=== PATIENT | female | born 1990 | race Two or more races ===

== ENCOUNTER → 2021-05-18 09:36 | Outpatient (BNVA) | payer OTHER, SELFPAY | PROVIDERS: Visit Provider Physician Assistant | DX: Z13.89 Encounter for screening for other disorder (principal) | CPT/HCPCS: 71101; 99203 ==

== ENCOUNTER → 2021-12-06 13:44 | Outpatient (BNVA) | payer OTHER, SELFPAY | PROVIDERS: Visit Provider Physician Assistant Medical | DX: Z13.89 Encounter for screening for other disorder (principal) | CPT/HCPCS: 99202 ==

== ENCOUNTER → 2021-12-09 09:32 | Outpatient (BNVA) | payer OTHER, SELFPAY | PROVIDERS: Visit Provider Physician Assistant Medical | DX: Z13.89 Encounter for screening for other disorder (principal) | CPT/HCPCS: 99213 ==

== ENCOUNTER → 2021-12-15 11:15 | Outpatient (BNVA) | payer OTHER, SELFPAY | PROVIDERS: Visit Provider Physician Assistant Medical | DX: Z13.89 Encounter for screening for other disorder (principal) | CPT/HCPCS: 99213 ==

== ENCOUNTER → 2021-12-23 10:55 | Outpatient (BNVA) | payer OTHER, SELFPAY | PROVIDERS: Visit Provider Physician Assistant Medical | DX: Z13.89 Encounter for screening for other disorder (principal) | CPT/HCPCS: 99213 ==

== ENCOUNTER → 2022-01-06 10:43 | Outpatient (BNVA) | payer OTHER, SELFPAY | PROVIDERS: Visit Provider Physician Assistant Medical | DX: Z13.89 Encounter for screening for other disorder (principal) | CPT/HCPCS: 72110; 73502; 99214 ==

== ENCOUNTER → 2022-01-19 11:23 | Outpatient (BNVA) | payer OTHER, SELFPAY | PROVIDERS: Visit Provider Physician Assistant Medical | DX: Z13.89 Encounter for screening for other disorder (principal) | CPT/HCPCS: 99213 ==

== ENCOUNTER 2022-01-27 14:55 | Outpatient (REF) | payer OTHER, SELFPAY ==
--- NOTE | ~2022-01-27 | MR_ITS ---
EXAMINATION: MR BRAIN WITHOUT AND WITH CONTRAST CLINICAL INFORMATION: 31-year-old with migraines without aura. Self-reported chronic migraines, progressively worsening over 2-3 months in timeframe. COMPARISON: None TECHNIQUE: Multiplanar, multisequence MRI of the brain was obtained before and after the intravenous administration of 9 mL Gadavist. FINDINGS: Brain Volume: Within normal range, within the limitations of a qualitative assessment. Structural: No malformations. Brain and Meninges: DWI sequence demonstrates no restricted diffusion to suggest acute or subacute cerebral ischemia. The brain is normal in morphology and signal intensity. Gradient refocused imaging demonstrates no evidence for hemorrhage, hemosiderin staining or abnormal mineral deposition. No intracranial mass lesion, extra-axial fluid collection, space-occupying process or mass effect is identified. No pathologic enhancement is seen. Ventricles and Subarachnoid Spaces: The ventricular system and subarachnoid spaces are within normal limits without hydrocephalus. Orbital Structures: The visualized orbital structures are grossly unremarkable within the limitations of the study. Vascular: Signal voids are noted in the visualized major intracranial vessels. Osseous Structures, Sinuses/Mastoids, Extracranial Soft Tissues: Unremarkable MR/MR head/brain wo/w con IMPRESSION: Normal MRI of the brain without and with contrast.
--- NOTE | ~2022-01-27 | MR_ITS ---
EXAMINATION: MR HIP WITHOUT CONTRAST, LEFT CLINICAL INFORMATION: Injury. Pain in the left quadriceps. Strain. No improvement with physical therapy. COMPARISON: None TECHNIQUE: MRI of the left hip was obtained using routine sequences on a high-field magnet. FINDINGS: LABRUM/CAPSULE: Intact. BONES AND ARTICULAR CARTILAGE: Articular cartilage at the hip joint appears relatively well preserved. No subchondral marrow signal abnormality. No fracture, avascular necrosis, or stress reaction. Imaged portions of the pubic symphysis, right hip, and SI joints are unremarkable. MUSCLES AND TENDONS: There is a small focus of edema signal at the deep margin of the left rectus femoris muscle proximally, potentially corresponding to a focal strain or contusion. No appreciable tears on these images. Tendons are intact without tears or tendinosis. Aponeuroses at the pubic symphysis are normal. JOINT FLUID AND BURSAE: Trace fluid in the left hip joint is within normal limits. There is a small synovial cyst along the medial margin of the femoral neck which is of doubtful clinical significance. No bursitis. LIGAMENTUM TERES: Intact. INTRAPELVIC SOFT TISSUES: Unremarkable. No adenopathy. MR/MR hip LT wo con IMPRESSION: Focal strain or contusion at the proximal rectus femoris muscle. No appreciable tears.
== END 2022-01-27 14:56 | disposition home or self-care (01) ==
LOC: HO.MRI 14:55
PROVIDERS: Visit Provider Internal Medicine
DX: M25.552 Pain in left hip (principal); G43.009 Migraine without aura, not intractable, without status migrainosus
CPT/HCPCS: 70553; 73721; A9585

== ENCOUNTER → 2022-02-03 10:33 | Outpatient (BNVA) | payer OTHER, SELFPAY | PROVIDERS: Visit Provider Physician Assistant Medical | DX: Z13.89 Encounter for screening for other disorder (principal) | CPT/HCPCS: 99213 ==

== ENCOUNTER 2022-02-15 15:01 | Outpatient (REF) | payer OTHER, SELFPAY ==
--- NOTE | ~2022-02-15 | MR_ITS ---
EXAMINATION: MR LUMBAR SPINE WITHOUT CONTRAST CLINICAL INFORMATION: Low back strain, radiculopathy. COMPARISON: None TECHNIQUE: MRI of the lumbar spine was obtained using routine sequences without contrast. FINDINGS: The lumbar vertebral bodies maintain normal heights. There is minimal retrolisthesis of L3 on L4. No disc height loss is seen. There is disc desiccation at L4-L5 and L5-S1. Spinal cord appears normal. The conus medullaris terminates normally at the L1-L2 level. The extraspinal soft tissues are unremarkable. SPINAL LEVELS: L1-L2: No posterior disc abnormality. No spinal canal or neural foraminal stenosis. L2-L3: No posterior disc abnormality. No spinal canal or neural foraminal stenosis. L3-L4: Disc bulging with shallow central protrusion. Mild narrowing of the left subarticular zone. No spinal canal or neural foraminal stenosis. L4-L5: Disc bulging with mild flattening of the ventral thecal sac and narrowing of the right subarticular zone. No spinal canal or neural foraminal stenosis. L5-S1: Disc bulging with central protrusion with annular fissuring causing right subarticular stenosis. Mild facet arthropathy. Moderate bilateral neural foraminal stenosis. MR/MR lumbar spine wo con IMPRESSION: Mild spondylotic changes at L3-L4, L4-L5, and L5-S1 but without significant narrowing of the spinal canal. Neural foraminal stenosis appears moderate at the L5-S1 level.
== END 2022-02-15 15:02 | disposition home or self-care (01) ==
LOC: HO.MRI 15:01
PROVIDERS: Visit Provider Physician Assistant Medical
DX: S39.012D Strain of muscle, fascia and tendon of lower back, subsequent encounter (principal); M54.16 Radiculopathy, lumbar region
CPT/HCPCS: 72148

== ENCOUNTER → 2022-02-17 09:49 | Outpatient (BNVA) | payer OTHER, SELFPAY | PROVIDERS: Visit Provider Physician Assistant Medical | DX: Z13.89 Encounter for screening for other disorder (principal) | CPT/HCPCS: 99213 ==

== ENCOUNTER 2022-02-22 15:00 | Outpatient (RCR) | payer OTHER, BC, SELFPAY ==
--- NOTE | 2021-12-14 16:11 | MHC.PT.EP ---
[facility] [place] Office [place] Office [place] Office [address] Radha Rendon [address] [phone] F: [phone] F: [phone] F: [phone] F: [phone] Physical Therapy Plan of Care Date of Evaluation: Date of Surgery: n/a Diagnosis: L IT, lumbar strain Assessment: Patient is a 30 year old female presenting to PT with complaints of pain in her low back and B anterior quads. Pt reports onset of pain began 12/06/2021 due to slipping and falling at work. She presents today with impairments in pain, ROM, hip strength, core strength, and posture. Pt's current occupation is [employer] at [employer], with baseline physical activities including standing, stair negotiation, work. Pt expresses long-term goal of getting back to normal, and is motivated to work towards this in PT. Clinical presentation today is most consistent with signs and sx associated with possible low back and B quad pain that is likely myofascial in nature and pt will benefit from skilled PT to address the following problems and impairments noted upon evaluation: pain, ROM, hip strength, core strength, and posture. These problems limit the patient with the following functional activities: standing, stair negotiation, work. The prescribed treatment plan of care is medically necessary. Co-morbidities of vasovagal syncope were identified and taken into considerations of plan of care. Pt was educated on HEP, role of PT, prognosis, POC. Frequency and Duration: The patient will be seen 2 x week x 4 weeks Short Term Goals: Pt will demonstrate lumbar AROM in available range with min to no pain in 2 weeks. Pt will demonstrate improved quad length B in 2 weeks. Pt will demonstrate improved hip strength extension and abduction strength to at least 4/5 in 2 weeks for improved lumbopelvic stability. Fern Picker Goals: Pt will demonstrate improved Alicia score by 10% in 4 weeks for improved functional mobility. Pt will demonstrate improved LEFI score by 9 points for improved overall functional mobility. Pt will demonstrate ability to stand/ambulate during a shift with min to no pain in 4 weeks for return to PLOF. Treatment Plan: Modalities to reduce pain, spasms and effusion. Manual therapy to restore motion and function. Therapeutic exercise to improve strength and flexibility. Neuromuscular re-education for posture and balance. Therapeutic activities to return to functional activities of daily living. Electronically signed by: Jordana Salgado PT, DPT, ATC Please sign and return to therapist. Thank you for your referral.
--- NOTE | 2022-02-22 15:55 | MHC.PT.DC ---
[facility] [place] Office [place] Office [place] Office [address] Vid[address] Rendon [address] [phone] F: [phone] F: [phone] F: [phone] F: [phone] Physical Therapy Discharge Report Diagnosis: L IT, lumbar strain Date of Surgery: n/a Date of Evaluation: 12/14/21 Date of Discharge: 02/22/22 Treatments to Date: 16 Cancellations to Date: 1 No Shows to Date: 3 Discharge Status: Recommend MD Follow-up Discharge Summary: Pt has unfortunately made little progress since start of care in both her pain and function thus limiting her ability to meet her goals. Multiple different treatment approaches from 2 different therapists have been trialed and pt still with no real change in her pain and sx. It appears max benefits of PT have been provided at this point. She is working a lot and at times upwards of 60 hours a week and discussed with her that this likely contributes to some of her pain. Discussed with pt that due to lack of progress it is not indicated to continue skilled PT at this point as there is no real recent meaningful change in her progress. Pt would benefit further from possible referral to pain management or another specialist for further alleviation of pain. Electronically signed by: Jordana Salgado, PT, DPT, ATC Please sign and return to therapist. Thank you for your referral.
== END 2022-02-22 15:56 | disposition home or self-care (01) ==
LOC: HO.PTCHIC 15:00
PROVIDERS: Visit Provider Physician Assistant Medical
DX: S39.012D Strain of muscle, fascia and tendon of lower back, subsequent encounter (principal); S76.912D Strain of unspecified muscles, fascia and tendons at thigh level, left thigh, subsequent encounter
CPT/HCPCS: 97110; 97140; 97161

== ENCOUNTER → 2022-02-27 15:14 | Outpatient (BNVA) | payer OTHER, SELFPAY | PROVIDERS: Visit Provider Physician Assistant Medical | DX: Z13.89 Encounter for screening for other disorder (principal) | CPT/HCPCS: 99213 ==

== ENCOUNTER → 2022-03-08 14:52 | Outpatient (BNVA) | payer OTHER, SELFPAY | PROVIDERS: PCP Internal Medicine; Visit Provider Nurse Practitioner Family | DX: M47.816 Spondylosis without myelopathy or radiculopathy, lumbar region (principal); M53.3 Sacrococcygeal disorders, not elsewhere classified; S76.819A Strain of other specified muscles, fascia and tendons at thigh level, unspecified thigh, initial encounter | CPT/HCPCS: 99202 ==

== ENCOUNTER → 2022-03-16 11:23 | Outpatient (BNVA) | payer OTHER, SELFPAY | PROVIDERS: PCP Internal Medicine; Visit Provider Physician Assistant Medical | DX: Z13.89 Encounter for screening for other disorder (principal) | CPT/HCPCS: 99213 ==

== ENCOUNTER → 2022-04-14 11:01 | Outpatient (BNVA) | payer OTHER, SELFPAY | PROVIDERS: PCP Internal Medicine; Visit Provider Physician Assistant Medical | DX: Z13.89 Encounter for screening for other disorder (principal) | CPT/HCPCS: 99213 ==

== ENCOUNTER → 2022-04-21 11:35 | Outpatient (BNVA) | payer OTHER, SELFPAY | PROVIDERS: PCP Internal Medicine; Visit Provider Physician Assistant Medical | DX: Z13.89 Encounter for screening for other disorder (principal) | CPT/HCPCS: 99213 ==

== ENCOUNTER → 2022-05-04 11:49 | Outpatient (BNVA) | payer OTHER, SELFPAY | PROVIDERS: PCP Internal Medicine; Visit Provider Physician Assistant Medical | DX: Z13.89 Encounter for screening for other disorder (principal) | CPT/HCPCS: 99213 ==

== ENCOUNTER → 2022-05-25 11:11 | Outpatient (BNVA) | payer OTHER, SELFPAY | PROVIDERS: PCP Internal Medicine; Visit Provider Physician Assistant Medical | DX: Z13.89 Encounter for screening for other disorder (principal) | CPT/HCPCS: 99213 ==

== ENCOUNTER → 2022-06-06 14:38 | Outpatient (BNVA) | payer OTHER, SELFPAY | PROVIDERS: PCP Internal Medicine; Visit Provider Nurse Practitioner Family | DX: M53.3 Sacrococcygeal disorders, not elsewhere classified (principal); M47.816 Spondylosis without myelopathy or radiculopathy, lumbar region; M54.16 Radiculopathy, lumbar region | CPT/HCPCS: 99212 ==

== ENCOUNTER → 2022-06-15 11:17 | Outpatient (BNVA) | payer OTHER, SELFPAY | PROVIDERS: PCP Internal Medicine; Visit Provider Physician Assistant Medical | DX: Z13.89 Encounter for screening for other disorder (principal) | CPT/HCPCS: 99213 ==

== ENCOUNTER 2022-06-29 15:38 | Emergency (ER) | payer OTHER, SELFPAY ==
[2022-06-29 15:59] VITALS: BP 121/64; PULSE 122; RESP 18; TEMP 37.7; O2SAT 98; BMI 36.8
--- NOTE | 2022-06-29 16:12 | ED.GENADULT ---
HPI - General Adult General Chief complaint: General Medical Stated complaint: tonsils swollen seen at urgent care Time Seen by Provider: 06/29/22 16:00 History of Present Illness HPI narrative: This is a 31-year-old female who complains of sore throat and pain with swallowing that began about 24 hours ago. Patient went to urgent care today and was tested for strep and COVID and was negative. A mono test was sent but is pending. Patient has had fever up to 101. She states she was prescribed Augmentin tablets but she cannot swallow such large tablets. She denies any cough, vomiting or diarrhea. She denies any URI symptoms. She denies being Related Data Home Medications Medication Instructions Recorded Confirmed hbspuaydpo-tkirxxoccyuem-seqtssfa 1 cap PO Q8H PRN 03/08/22 06/06/22 50 mg-300 mg-40 mg capsule (Fioricet) cetirizine 10 mg capsule (Zyrtec) 10 mg PO DAILY PRN 03/08/22 06/06/22 diclofenac sodium 75 mg 75 mg PO BID 03/08/22 06/06/22 tablet,delayed release galcanezumab-gnlm 120 mg/mL mg subcut 03/08/22 06/06/22 subcutaneous syringe (Emgality) metoclopramide HCl 10 mg tablet 10 mg PO QIDACHS 03/08/22 06/06/22 (Reglan) midodrine 5 mg tablet 5 mg PO TID 03/08/22 06/06/22 venlafaxine 75 mg capsule,extended 75 mg PO DAILY 03/08/22 06/06/22 release 24 hr (Effexor XR) Previous Rx's Medication Instructions Recorded Magic Mouthwash 15 ml PO Q4H PRN throat pain 5 06/29/22 Diphen/Lido/Antacid 1:1:1 240 mL days #240 mL suspension clindamycin palmitate HCl 75 mg/5 300 mg (20 mL) PO QID 7 days #560 06/29/22 mL oral solution (Cleocin mL Pediatric) Allergies Allergy/AdvReac Type Severity Reaction Status Date / Time oxycodone AdvReac Severe Itching Verified 06/06/22 14:56 Review of Systems Review of Systems: Yes all other systems are reviewed and are negative Constitutional: Constitutional: Reports fever(s) Eyes: Eyes: Reports as per HPI and Reports no additional eye complaints ENT: Reports system reviewed and no additional complaints, except as documented, Reports as per HPI, Denies nasal congestion, Denies nasal discharge and Reports sore throat Cardiovascular: Cardiovascular: Reports as per HPI, Denies chest pain and Denies dyspnea Respiratory: Respiratory: Reports as per HPI, Denies cough and Denies dyspnea Gastrointestinal: Gastrointestinal: Reports as per HPI, Denies abdominal pain, Denies diarrhea and Denies vomiting Genitourinary: Genitourinary: Reports as per HPI, Denies hematuria, Denies urinary frequency and Denies dysuria Musculoskeletal: Musculoskeletal: Reports no additional musculoskeletal complaints and Denies numbness Integumentary/Breasts: Skin/Breast: Reports as per HPI and Denies rash Neurologic: Reports as per HPI, Denies focal weakness and Denies numbness Psychiatric: Psychiatric: Reports no additional psychiatric complaints and Reports as per HPI Endocrine: Endocrine: Reports no additional endocrine complaints and Reports as per HPI Hematologic/Lymphatic: Hematologic/Lymphatic: Reports no additional hematologic/lymphatic complaints, Reports as per HPI and Reports other (No peripheral edema) [facility] Past Medical History Medical History (Updated 06/30/22 @ 00:00 by Cee Noble) Migraines Ovarian cyst Strain of rectus femoris muscle Vasovagal syncope Surgical History (Updated 06/06/22 @ 22:39 by ALBAN Ferreira) History of removal of ovarian cyst History of shoulder surgery History of strabismus surgery Social History Social History Smoked in Last 30 Days: No Use of substances other than those prescribed or required for medical reasons: No Advance Directives: No Advance Directives Information Provided: No Patient : No Physical Exam ED Vital Signs: Vital Signs - 24 hr 06/29/22 15:59 06/29/22 18:53 Temperature 99.9 F 98.6 F Pulse Rate 122 H 84 Respiratory Rate 18 14 Blood Pressure 121/64 93/46 L Pulse Oximetry 98 98 Oxygen Delivery Method Room Air Room Air BMI result Body Mass Index 36.8 Const General: no acute distress Orientation/consciousness: patient oriented x3 HENMT Head: Yes normal to inspection General nose exam: Normal external nose present Mouth: moist mucous membranes and no muffled voice Throat: Yes posterior oropharynx normal, No tonsils normal (Enlargement of left tonsil more than the right with mild shift of the uvula), No uvula midline and Yes abnormal tonsil (Left enlarged, exudate seen in left posterior pharynx) Eyes Eyelids: Yes eyelids normal Conjunctivae: conjunctivae normal Pupils: Equal, round and reactive pupils present Neck Neck: Yes supple Resp Effort & Inspection: normal respiratory effort Auscultation: clear to auscultation bilaterally Cardio Rate: regular rate Rhythm: regular rhythm Heart sounds: S1 normal heart sound present, S2 normal heart sound present, no gallops, no murmurs and no rubs GI Inspection: No distended Palpation (GI): Soft to palpation and nontender Auscultation: normal bowel sounds Skin General skin exam: other (Warm and dry) Neuro General: patient oriented x3 and CN's II-XI intact bilaterally Cranial nerves: Yes Equal, round and reactive pupils present Extrem General: Yes no pedal edema Psych Affect: normal affect Attitude: cooperative Medications Administered Discontinued Medications Generic Name Dose Route Start Last Admin Trade Name Freq PRN Reason Stop Dose Admin Dexamethasone Sodium Phosphate 10 mg 06/29/22 16:05 06/29/22 16:58 Dexamethasone Sod Phosphate 10 Mg/Ml Vial IVPUSH 06/29/22 16:06 10 mg ONCE ONE Administration Sodium Chloride 1,000 mls @ 999 mls/hr 06/29/22 16:15 06/29/22 18:34 Ns IV 06/29/22 17:15 Infused .Q1H1M DIDIER Infusion Ceftriaxone Sodium 1 gm/ 50 mls @ 100 mls/hr 06/29/22 16:05 06/29/22 18:34 Sodium Chloride IV 06/29/22 16:34 Infused ONCE ONE Infusion Ketorolac Tromethamine 15 mg 06/29/22 17:02 06/29/22 17:14 Ketorolac Tromethamine 15 Mg/Ml Vial IVPUSH 06/29/22 17:03 15 mg ONCE ONE Administration Medical Decision Making [facility] Narrative Medical decision making narrative: Patient with a sore throat and enlargement of her tonsil, left greater than right. From initial evaluation when the patient was in the hallway, there appeared to be more asymmetry and this appeared to be a peritonsillar abscess. Upon re-evaluation after the patient had received steroids and IV fluids, and with a better view in her throat, the uvula was only slightly deviated. There was fullness in the left peritonsillar space but it was mild and I felt that attempted aspiration was unlikely to drain pus at this point. The patient has only been symptomatic for 24 hours. At the patient received Rocephin 1 g IV and will be started on clindamycin suspension. At this point the patient may only have peritonsillar cellulitis. Explained the patient that I considered aspiration but felt that it it may be too early to drain pus. The patient is being given Unasyn throat follow-up. Lab Data Lab results reviewed: Yes I reviewed the patient's lab results. Result diagrams: 06/29/22 16:53 06/29/22 16:53 Labs: Lab Results 06/29/22 06/29/22 Range/Units 16:53 16:53 WBC 16.4 H (4.8-10.8) X10*3/uL RBC 4.45 (4.20-5.50) X10*6/uL Hgb 13.0 (12.0-16.0) g/dl Hct 38.9 (37.0-47.0) % MCV 87.4 (80.0-98.0) fL MCH 29.2 (27.0-33.0) pg MCHC 33.4 (31.0-35.0) g/dl RDW 12.9 (11.0-16.0) % Plt Count 242 (160-400) X10*3/uL MPV 10.0 (9.4-12.3) fL Immature Gran % (Auto) Cancelled Neut % (Auto) Cancelled Lymph % (Auto) Cancelled [place] % (Auto) Cancelled Eos % (Auto) Cancelled Baso % (Auto) Cancelled Lymph # (Auto) Cancelled [place] # (Auto) Cancelled Eos # (Auto) Cancelled Baso # (Auto) Cancelled Abs Immat Gran (auto) Cancelled Absolute Neuts (auto) Cancelled Absolute Nucleated RBC 0.000 (0.0-0.012) X10*3/uL Nucleated RBC % (auto) 0.0 (0.0-0.2) /100WBC Neutrophils % (Manual) 90 H (45-73) % Band Neutrophils % 4 (3-5) % Lymphocytes % (Manual) 4 L (20-40) % Monocytes % (Manual) 2 (2-11) % Abs Neuts (Manual) 15.4 H (2.0-8.3) X10*3/uL Lymphocytes # (Manual) 0.7 L (1.2-4.9) X10*3/uL Monocytes # (Manual) 0.3 (0.1-1.2) X10*3/uL Toxic Vacuolation PRESENT Platelet Estimate NORMAL (NORMAL) Plt Morphology Comment NORMAL RBC Morphology NORMAL Sodium 134 L (135-145) mmol/L Potassium 3.6 (3.3-5.1) mmol/L Chloride 101 (96-108) mmol/L Carbon Dioxide 25 (22-29) mmol/L Anion Gap 12 (12-20) BUN 7 L (9-16) mg/dL Creatinine 0.72 (0.5-1.4) mg/dL Estim Creat Clear Calc 116.5 Estimated GFR > 60 Random Glucose 98 (60-115) mg/dL Calcium 9.5 (8.4-10.2) mg/dL Total Bilirubin 1.0 (0.0-1.0) mg/dL AST 17 (5-31) U/L ALT 10 (0-31) U/L Alkaline Phosphatase 65 (39-117) U/L Total Protein 7.9 (6.5-8.0) g/dL Albumin 4.7 (3.5-5.0) g/dL Discharge Plan Discharge Clinical Impression: Peritonsillar cellulitis Patient Disposition: Home, Self-Care Instructions: Peritonsillar Abscess (ED) Additional Instructions: You may have peritonsillar cellulitis, versus an early peritonsillar abscess. At this point the swelling is not significant enough that I think it is likely I will get pus out if I try to drain it. Recommend antibiotics, avoiding solid foods, drinking plenty of fluids, using ibuprofen or Tylenol for pain or fever. Return for any new or worsened symptoms such as increased difficulty swallowing, muffled voice, trouble breathing. Gargle with warm salty water for 10 minutes 4 times a day. Prescriptions: New clindamycin palmitate HCl [Cleocin Pediatric] 75 mg/5 mL recon soln 300 mg PO QID 7 Days Qty: 560 0RF Magic Mouthwash Diphen/Lido/Antacid 1:1:1 240 mL suspension 15 ml PO Q4H PRN (Reason: throat pain) 5 Days Qty: 240 0RF Rx Instructions: Lidocaine Viscous 2 % 80mL; diphenhydramine 12.5 mg/5 mL 80mL; aluminum-mag hydrox-simeth 604iy-304qy-60my/5mL 80mL. Gargle and spit or swallow No Action midodrine 5 mg tablet 5 mg PO TID Zyrtec 10 mg capsule 10 mg PO DAILY PRN venlafaxine [Effexor XR] 75 mg capsule,extended release 24hr 75 mg PO DAILY diclofenac sodium 75 mg tablet,delayed release (DR/EC) 75 mg PO BID Emgality Syringe 120 mg/mL syringe subcut metoclopramide HCl [Reglan] 10 mg tablet 10 mg PO QIDACHS uamfbfjlip-pumvwrpauzeko-dphn [Fioricet] 50-300-40 mg capsule 1 cap PO Q8H PRN Referrals: Brooks Jimenez [Physician] - 1 day Stand Alone Forms: Work/School Release Interventions: ED Discharge Assessment Last Done: 06/29/22 19:32 Discharge Date/Time: 06/29/22 19:33
--- OUTSIDE RECORDS SUMMARY | 2022-06-29 16:21 | XMS_ITS | Continuity of Care Document ---
:1990 Author Organization [facility] Address [address] [place] [address]- Care Team Providers Name Role Phone Catrina Childers MD, Savi Primary Care Physician Encounter [facility] Date(s): 05/27/21 - 08/04/[address] [address]- Attending Physician: Son Barrett MD Allergies, Adverse Reactions, Alerts Substance Reaction Severity Status Peanuts Active Lutein + Kale1 Active Bananas Active Coconut Active Soy Products Active Grapes Active [place] Active 1kale- vomiting,hives Immunizations Given and Recorded Vaccine Date Status Refusal Reason influenza virus vaccine, inactivated1 05/17/16 Given influenza virus vaccine, inactivated2 06/01/15 Given influenza virus vaccine, inactivated3 06/01/15 Given influenza virus vaccine, inactivated 05/09/13 Given influenza virus vaccine, inactivated4 08/29/12 Given influenza virus vaccine, inactivated5 07/20/09 Given Human Papillomavirus Vaccine6 02/10/14 Given Human Papillomavirus Vaccine7 07/20/09 Given Human Papillomavirus Vaccine8 03/30/09 Given tetanus/diphtheria/pertussis, acel(Tdap)9 01/03/13 Given influ virus vac, H1N1, inactive(oldterm)10 07/20/09 Given 1Result Comment: [05/17/2016] ORDERED BY DR. [id number] Comment: [06/01/2015] ORDERED BY SAVI MOYA NP3Result Comment: [06/01/2015] ORDERED BY SAVI Sanz NP4Admin Note: VIS GIVEN:01/29/20125Admin Note: [id number] Comment: [02/10/2014] Ordered by [id number] Note: vis 08/31/06 [email or web address] Note: VIS 08/31/069Result Comment: [01/03/2013] order by Shama [id number] Note: GIVEN Medications Butalbital 0 Refills, Maintenance, 06/29/21 15:27:00 EST, Partial fill upon patient request if the prescriptionis for a schedule II opioid drug. Start Date: 06/29/21 Status: Orderedcetirizine 10 mg oral tablet 1 tablet = 10 mg, By Mouth, Daily, # 30 tablet, 6 Refills, Maintenance, 12/18/14 8:51:46, 1 tablet By Mouth Daily Start Date: 12/18/14 Status: OrderedEmgality 0 Refills, Maintenance, 06/29/21 15:26:00 EST, Partial fill upon patient request if the prescriptionis for a schedule II opioid drug. Start Date: 06/29/21 Status: OrderedEpiPen 2-Gilberto = 0.3 mg, Intramuscular, Once, Per Grain Unloader, 0 Refills, Maintenance, 03/29/15 16:38:11 Start Date: 03/29/15 Status: Orderedgabapentin 100 mg oral capsule 100 mg, 1, capsule, By Mouth, 3 times a day, Refills 0, Maintenance, 06/29/21 15:26:00 EST, Partial fill upon patient request if the prescription is for a schedule II opioid drug. Start Date: 06/29/21 Status: Orderedibuprofen 600 mg oral tablet 600 mg, 1, tablet, By Mouth, Every 8 hours, # 30 tablet, Refills 0, Tot. Refills 0, Maintenance, 03/27/16 18:44:45, Print Requisition Start Date: 03/27/16 Status: OrderedMidodrine By Mouth, 3 times a day, 0 Refills, Maintenance, 06/29/21 15:27:00 EST, Partial fill upon patient request if the prescription is for a schedule II opioid drug. Start Date: 06/29/21 Status: OrderedMirena 52 mg intrauteral device 1 each = 52 mg, Intrauterine, Once, for office insertion aniket, # 1 each, 0 Refills, Soft Stop, for office insertion in ~2 wks., 1 each Intrauterine Once,Instr:for office insertion aniket Start Date: 05/09/13 Status: OrderedoxyCODONE 5 mg oral tablet 5 mg, 1, tablet, By Mouth, Every 4 hours, PRN, do not drive while on this medication; do not mix with alcohol; may cause constipation, Refills 0, Tot. Refills 0, Maintenance, as needed for pain, 07/05/21 9:21:00 EST, Partial fill upon patient request... Start Date: 07/05/21 Status: OrderedSingulair By Mouth, Daily, 0 Refills, Maintenance, 06/29/21 15:27:00 EST, Partial fill upon patient request ifthe prescription is for a schedule II opioid drug. Start Date: 06/29/21 Status: OrderedTopamax 25 mg oral tablet See Instructions, 2 tablet By Mouth in the AM, with 1 tablet in the PM., # 90 tablet, 0 Refills, Maintenance, 10/19/16 16:06:34 Start Date: 10/19/16 Status: Orderedvenlafaxine 150 mg oral capsule, extended release 150 mg, 1, capsule, By Mouth, Daily, Refills 0, Maintenance, 06/29/21 15:26:00 EST, Partial fill upon patient request if the prescription is for a schedule II opioid drug. 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
[2022-06-29] MEDS: cefTRIAXone sodium 1 GM in 0.9 % Sodium Chloride 50 ML IV (16:57)
[2022-06-29] MEDS: 0.9 % Sodium Chloride 1,000 ML 999 ML IV (16:58)
[2022-06-29] MEDS: dexAMETHasone sod phosphate 10 MG/ML VIAL IVPUSH (16:58)
[2022-06-29 16:59] LABS: Hematocrit 38.9 % (37.0-47.0); Mean Corpuscular HGB Conc 33.4 g/dl (31.0-35.0); Mean Corpuscular Hemoglobin 29.2 pg (27.0-33.0); Mean Corpuscular Volume 87.4 fL (80.0-98.0); Platelet Count 242 X10*3/uL (160-400); Red Blood Count 4.45 X10*6/uL (4.20-5.50); Red Cell Distribution Width 12.9 % (11.0-16.0); White Blood Count 16.4 X10*3/uL (4.8-10.8)
[2022-06-29] MEDS: Ketorolac Tromethamine 15 MG/ML VIAL IVPUSH (17:14)
[2022-06-29 17:19] LABS: Alanine Aminotransferase 10 U/L (0-31); Albumin Level 4.7 g/dL (3.5-5.0); Alkaline Phosphatase 65 U/L (39-117); Anion Gap 12 (12-20); Aspartate Amino Transferase 17 U/L (5-31); Band Neutrophils Percent 4 % (3-5); Blood Urea Nitrogen 7 mg/dL (9-16); Calcium 9.5 mg/dL (8.4-10.2); Carbon Dioxide 25 mmol/L (22-29); Chloride 101 mmol/L (96-108); Creatinine Clr Calc Pharmacy 116.5; Estimated Glomerular Filt Rate > 60; Glucose Random 98 mg/dL (60-115); Lymphocytes Absolute Manual 0.7 X10*3/uL (1.2-4.9); Lymphocytes Percent Manual 4 % (20-40); Monocytes Absolute Manual 0.3 X10*3/uL (0.1-1.2); Monocytes Percent Manual 2 % (2-11); Neutrophils Absolute Manual 15.4 X10*3/uL (2.0-8.3); Neutrophils Percent Manual 90 % (45-73); Potassium 3.6 mmol/L (3.3-5.1); Sodium 134 mmol/L (135-145); Total Protein 7.9 g/dL (6.5-8.0)
[2022-06-29 17:20] LABS: Platelet Estimate NORMAL (NORMAL); Platelet Morphology Comment NORMAL; RBC Morphology NORMAL; Toxic Vacuolation PRESENT
[2022-06-29 18:53] VITALS: BP 93/46; PULSE 84; RESP 14; TEMP 37; O2SAT 98
--- NOTE | 2022-06-29 19:32 | PC.NURSE ---
IV removed. Pt tolerated well. Discharge instructions reviewed with pt. Pt verbalizes understanding.
== END 2022-06-29 19:33 | disposition home or self-care (01) ==
PROVIDERS: Emergency Provider Emergency Medicine; PCP Internal Medicine
DX: J36 Peritonsillar abscess (principal); R50.9 Fever, unspecified
CPT/HCPCS: 36415; 80053; 85007; 85025; 85027; 96361; 96365; 96375; 99284; J0696; J1100; J1885

== ENCOUNTER 2022-07-18 06:07 | Outpatient (REF) | payer OTHER, SELFPAY ==
--- NOTE | ~2022-07-18 | FL_ITS ---
EXAMINATION: XR FLUOROSCOPY WITH IMAGES CLINICAL INFORMATION: Radiculopathy, lumbar region. COMPARISON: None. TECHNIQUE: Fluoroscopy Supervised By: Dr. Hung Sharma. Fluoroscopy Time: 0.2. Minutes Cumulative Dose: 8.33 mGy. DAP: 2.27 Gycm2. Images: 1. FINDINGS: Imaging demonstrates a needle and contrast left side of L5. FL/FL guidance in treatment room IMPRESSION: Intraoperative fluoroscopy for pain management procedure.
== END 2022-07-18 06:08 | disposition home or self-care (01) ==
LOC: CF 06:07
PROVIDERS: Visit Provider Anesthesiology
DX: M54.16 Radiculopathy, lumbar region (principal); M53.3 Sacrococcygeal disorders, not elsewhere classified; M47.816 Spondylosis without myelopathy or radiculopathy, lumbar region
CPT/HCPCS: 64483; J3301

== ENCOUNTER → 2022-07-20 11:16 | Outpatient (BNVA) | payer OTHER, SELFPAY | PROVIDERS: PCP Internal Medicine; Visit Provider Physician Assistant Medical | DX: Z13.89 Encounter for screening for other disorder (principal) | CPT/HCPCS: 99213 ==

== ENCOUNTER → 2022-08-23 08:56 | Outpatient (BNVA) | payer OTHER, SELFPAY | PROVIDERS: PCP Internal Medicine; Visit Provider Anesthesiology | DX: M47.816 Spondylosis without myelopathy or radiculopathy, lumbar region (principal) | CPT/HCPCS: 99212 ==

== ENCOUNTER → 2022-08-28 15:01 | Outpatient (BNVA) | payer OTHER, SELFPAY | PROVIDERS: PCP Internal Medicine; Visit Provider Physician Assistant Medical | DX: Z13.89 Encounter for screening for other disorder (principal) | CPT/HCPCS: 99213 ==

== ENCOUNTER → 2022-09-22 09:46 | Outpatient (BNVA) | payer OTHER, SELFPAY | PROVIDERS: PCP Internal Medicine; Visit Provider Physician Assistant Medical | DX: Z13.89 Encounter for screening for other disorder (principal) | CPT/HCPCS: 99213 ==

== ENCOUNTER → 2022-10-20 11:06 | Outpatient (BNVA) | payer OTHER, SELFPAY | PROVIDERS: PCP Internal Medicine; Visit Provider Physician Assistant Medical | DX: Z13.89 Encounter for screening for other disorder (principal) | CPT/HCPCS: 99213 ==

== ENCOUNTER → 2022-11-27 13:32 | Outpatient (BNVA) | payer OTHER, SELFPAY | PROVIDERS: PCP Internal Medicine; Visit Provider Physician Assistant Medical | DX: Z13.89 Encounter for screening for other disorder (principal) | CPT/HCPCS: 99213 ==

== ENCOUNTER 2022-12-18 15:00 | Outpatient (RCR) | payer OTHER, SELFPAY ==
--- NOTE | 2022-09-26 09:42 | MHC.PT.EP ---
[place] Office [place] Office [place] [facility] [address] Radha Rendon [address] [phone] F: [phone] F: [phone] F: [phone] F: [phone] Physical Therapy Plan of Care Date of Evaluation: Date of Surgery: Diagnosis: L hip rectus femoris strain, lumbar strain (RC) Assessment: pt is a 31 y/o female presenting to physical therapy w/ referring diagnosis of L hip rectus femoris strain, lumbar strain following a slip and fall that occurred in November 2021. She continues to complain of persistent L superior anterolateral thigh, L sided low back, and central thoracolumbar pain. She has tried PT in the past, chiropractor, injections, and at home TENS w/ little improvement. Impairments include pain, decreased range of motion, decreased strength, impaired functional mobility, impaired postural awareness, and altered ambulation mechanics. pt is a fair candidate for skilled PT due to age, potential remediation of impairments, typical disease/condition progression and prognosis, comorbidities, and motivation. pt would benefit from skilled PT intervention to provide a tailored strengthening and stretching exercise program, functional training, gait training, postural re-training, neuromuscular re-education, modalities as needed for pain, equipment safety demonstration. Frequency and Duration: The patient will be seen 2x/wk for 3 wks Short Term Goals: pt will be I w/ HEP to promote self-management of condition. pt will improve lumbar flexion by 25% to promote ease in lower body dressing. Financial Adviser Goals: pt will report a statistically significant improvement in self-reported outcome measure, Alicia, to promote return to PLOF. pt will improve B quad strength to 5/5 to promote ease in navigating stairs. Treatment Plan: Modalities to reduce pain, spasms and effusion. Manual therapy to restore motion and function. Therapeutic exercise to improve strength and flexibility. Neuromuscular re-education for posture and balance. Therapeutic activities to return to functional activities of daily living. Electronically signed by: Lianne Romero PT, DPT Please sign and return to therapist. Thank you for your referral.
--- NOTE | 2022-12-22 09:26 | MHC.PT.DC ---
[facility] [place] Office [place] Office [place] Office [address] Radha Rendon 140 [facility] [phone] F: [phone] F: [phone] F: [phone] F: [phone] Physical Therapy Discharge Report Diagnosis: L hip rectus femoris strain, lumbar strain (RC) Date of Surgery: Date of Evaluation: 09/26/22 Date of Discharge: 12/22/22 Treatments to Date: 14 Cancellations to Date: 5 No Shows to Date: 2 Discharge Status: Improved Function Independent with HEP Discharge Summary: The patient was doing very well until approximately 5-6 weeks ago when she fell ill with a stomach virus. Due to feeling sick and fatigued she was not consistent with her attendance here in physical therapy and her exercise program at home. She attended a couple visits after some time away to get better. We reviewed her HEP and she was extensively educated on the importance of maintaining her current program. She is discharged from this physical therapy plan of care at this time. Electronically signed by: Lianne Romero PT, DPT Please sign and return to therapist. Thank you for your referral.
== END 2022-12-22 09:27 | disposition home or self-care (01) ==
LOC: HO.PT 15:00
PROVIDERS: PCP Internal Medicine; Visit Provider Physician Assistant Medical
DX: S39.012D Strain of muscle, fascia and tendon of lower back, subsequent encounter (principal); S76.012D Strain of muscle, fascia and tendon of left hip, subsequent encounter
CPT/HCPCS: 97110; 97162; 97530

== ENCOUNTER 2023-04-20 13:26 | Outpatient (AMB) | payer OTHER, SELFPAY ==
--- NOTE | 2023-04-20 13:33 | A.SPINEOV_ITS ---
Intake Intake Visit Reasons: Back pain Intake Note: Ms. vallejo is here today c/o back pain. [place] [facility] [employer] Required: No Allergies oxycodone Adverse Reaction (Severe, Verified 08/23/22 09:04) Itching Assessment & Plan Assessment & Plan (1) Trochanteric bursitis of right hip: Code(s): M70.61 - Trochanteric bursitis, right hip Plan Dear colleague, Thank you for referring Marylin to our office today. She is a pleasant 32-year-old female comes in today with a chief complaint R hip pain. She states that she sustained a slip and fall in November of last year. This originally caused her to have L leg pain and radiculoapthy. She reports that there was a wet floor in the radiology area of the hospital and states her feet slipped out from under her and she landed on her buttocks. She reports that at this time she strained her left rectus femoris, which was shown on MRI of the hip after her injury. Fortunately her L sided leg pain is reportedly no longer a problem for her. She now endorses right-sided radiation of pain/numbness from her right hip, down her lateral right thigh, terminating at the knee, and states she has nonspecific back pain that waxes and wanes. She has been closely followed by pain management who has had her complete 20 sessions of PT. They also performed a left-sided L5-S1 transforaminal steroid injection which she states only provided minimal relief. She has been utilizing Tylenol, ibuprofen, diclofenac, indomethacin, 2 different steroid tapers, ice, rest, heat, and pain patches without much alleviation of her R sided hip symptoms. PMH: None reported. Social hx: Patient does not smoke reports no substance use. Medications: Venlafaxine, midodrine, Reglan, indomethacin, emgality, cetirizine, Fioricet. Allergies: Oxycodone. Physical exam: Mobility / function: Patient ambulates well, can rise from a seated position without difficulty. Sensation: Grossly intact CN: II-XII grossly intact. Strength Testing Upper Extremities: - Deltoid 5/5 right 5/5 left - Biceps 5/5 right 5/5 left - Triceps 5/5 right 5/5 left - Wrist Ext 5/5 right 5/5 left - Wrist Flex 5/5 right 5/5 left - Hand support service tech 5/5 right 5/5 left - Interossei 5/5 right 5/5 left Strength Testing Lower Extremities: - Hip flexion 5/5 right 5/5 left - Knee extension 5/5 right 5/5 left - Dorsiflexion 5/5 right 5/5 left - Plantar flex 5/5 right 5/5 left - EHL 5/5 right 5/5 left Reflexes: - Biceps Right - 2+ Left - 2+ - Triceps Right - 2+ Left - 2+ - Patellar Right - 2+ Left - 2+ - Achilles Right - 2+ Left - 2+ - Plantar Right - 2+ Left - 2+ (+) R sided anel's (pain possibly confounding) (+) Severe pain to direct palpation of trochanteric bursa, R side only. (-) bilateral gaenslen's (-) Hudson?s sign (-) Clonus Imaging review: MRI of the lumbar spine completed in January of last years largely unremarkable. She has some facet arthropathy in the lumbar spine but nothing that should be causing the type of symptoms that she describes. Impression: The patient is a 32-year-old female who comes in today with a chief complaint of right hip pain with radiation down the lateral aspect of her right leg terminating near the knee. This is highly suspicious for IT band inflammation / trochanteric bursitis. This would fit the patients symptom pattern, and would make sense given that the lumbar MRI is unremarkable. The patient requested that she be re-evaluated with a 2nd opinion by pain management for potential treatment options. For this reason we will refer her back to pain management to see Dr. Lovell for potential greater trochanter injections, if he agrees with our clinical assessment after seeing the patient. At this time she is not in need of any neurosurgical interventions. Thank you for allowing us to care for your patient. The total time spent with this visit with this patient was 45 minutes reviewing history, physical exam, MRI Lumbar spine imaging review, and implementation of treatment plan or further diagnostic testing Konrad Soto MD,PhD [facility] Coding Level of Care Code New Pt Level 4 (09695) Diagnoses Trochanteric bursitis of right hip M70.61
== END 2023-04-20 14:06 | disposition home or self-care (01) ==
PROVIDERS: PCP Internal Medicine; Visit Provider Physician Assistant
DX: M70.61 Trochanteric bursitis, right hip (principal)
CPT/HCPCS: 99204

== ENCOUNTER → 2023-04-20 13:26 | Outpatient (BNVA) | payer OTHER, SELFPAY | PROVIDERS: PCP Internal Medicine; Visit Provider Physician Assistant ==